=== PATIENT | male | born 1940 | race Caucasian/White ===

== ENCOUNTER 2020-03-29 09:39 | Day surgery (SDC) | payer MEDICARE, SELFPAY ==
--- NOTE | 2020-03-26 09:58 | SUR.PREOP ---
03/26/2020 @ 1000--PHONE CALL MADE TO PATIENT. PATIENT UNDERSTANDS THAT LAB WORK AND COVID TESTING NEEDS TO BE COMPLETED @ 1030 ON 03/28/2020. PATIENT UNDERSTANDS IF LAB WORK AND COVID-19 TESTS ARE NOT COMPLETED BY 12PM ON THAT DATE, THE SURGERY SCHEDULED WILL BE CANCELLED AND RESCHEDULED FOR ANOTHER TIME.
[2020-03-28 10:31] VITALS: BMI 29.6
[2020-03-29 10:17] VITALS: BP 140/76; PULSE 74; RESP 18; TEMP 36.2; O2SAT 96
[2020-03-29 11:12] LABS: Coronavirus 19 IgG Antibody Negative (Negative); Coronavirus 19 IgM Antibody Negative (Negative)
[2020-03-29 12:25] VITALS: BP 99/70; PULSE 72; RESP 18; TEMP 36.2; O2SAT 97
--- NOTE | 2020-03-29 13:26 | [facility].OPNOTE ---
Date of procedure: 03/29/20 Pre-op Diagnosis:: History of bladder cancer Post-op Diagnosis:: History of bladder cancer Procedure performed:: Surveillance cystoscopy Surgeon:: Braxton Chatman MD Anesthesia: local Estimated blood loss (mL): 0 Clinical Note:: Patient is a 79-year-old white male with history of superficial bladder cancer. His last cystoscopy was a year ago and is 6 months overdue. Previous bladder tumor has been at the bladder dome. He denies any interval hematuria. Operative findings:: Slight amount of redness at the bladder dome but no papillary appearing tissue. Operative note:: Patient taken to the operating room after informed consent was obtained. On the stretcher he was prepped and draped in the standard surgical fashion and 2% lidocaine placed into the urethra and the urethra clamped. For 5 minutes the flexible cystoscope introduced into the urethral meatus and passed to the prostatic urethra which showed some moderate hyperplasia. The bladder was entered and examined in a systematic fashion. There was a little bit of redness at the bladder dome and this was the site of previous resection. No evidence of recurrent tumor was noted. No other mucosal abnormalities, stones, cellules or diverticula noted. Ureteral orifices were well away from the bladder neck with clear reflux of urine. Bladder neck and urethra were within normal limits. The scope removed and the patient tolerated procedure well. We discussed the findings and we will see him back in 6 months in follow-up. Condition: stable Disposition: same day Specimens:: None Complications:: None
[2020-03-29 18:59] LABS: POC Glucose,Bedside 160 (70-110)
== END 2020-03-29 12:35 | disposition home or self-care (01) ==
LOC: OUTP 09:41
PROVIDERS: PCP Family Medicine; Visit Provider Urology
PROC: (CPT 52000; principal; 2020-03-29 13:30)
DX: Z08 Encounter for follow-up examination after completed treatment for malignant neoplasm (principal); L53.8 Other specified erythematous conditions; Z85.51 Personal history of malignant neoplasm of bladder; Z79.82 Long term (current) use of aspirin; Z79.84 Long term (current) use of oral hypoglycemic drugs; Z79.899 Other long term (current) drug therapy; I25.10 Atherosclerotic heart disease of native coronary artery without angina pectoris; E10.9 Type 1 diabetes mellitus without complications; M19.90 Unspecified osteoarthritis, unspecified site; Z87.891 Personal history of nicotine dependence
CPT/HCPCS: 52000; 36415; 82962; 86328